=== PATIENT | male | born 1970 | race Caucasian/White ===

== ENCOUNTER 2020-10-21 08:14 | Emergency (ER) | payer BC ==
[~2020-10-21 08:14] MED LIST: ZOFRAN ODT 4 MG4 MG SL
[2020-10-21 09:04] LABS: HEMOGLOBIN 19.8 gm/dl (14.0-17.5); RED BLOOD COUNT 6.59 M/UL (4.20-5.50); WHITE BLOOD COUNT 17.1 K/UL (4.5-11.0)
[2020-10-21] MEDS ORDERED: ZOFRAN4 MG PO (12:08)
== END 2020-10-21 12:20 | disposition left against medical advice (07) ==
LOC: ER1 08:14
PROVIDERS: Physician Assistant
DX: R11.2 Nausea with vomiting, unspecified (principal); R19.7 Diarrhea, unspecified; E86.0 Dehydration; D72.829 Elevated white blood cell count, unspecified; E87.2 Acidosis; R10.84 Generalized abdominal pain; I10 Essential (primary) hypertension; Z53.20 Procedure and treatment not carried out because of patient's decision for unspecified reasons
CPT/HCPCS: 80053; 81001; 83605; 83690; 85025; 87040; 96372; 96374; 99284; J0500; J2405; J7030; Q9967

== ENCOUNTER 2021-04-15 09:21 | Emergency (ER) | payer BC ==
[~2021-04-15] VITALS: Ht 182.9 cm; Wt 95.3 kg
[~2021-04-15 09:21] MED LIST changes: +ZOFRAN4 MG PO
[2021-04-15] MEDS ORDERED: IBUPROFEN800 MG PO (11:25)
[2021-04-15] MEDS ORDERED: ZOFRAN ODT 4 MG4 MG PO (11:25)
[2021-04-15] MEDS ORDERED: IMODIUM CAP 2 MG2 MG PO (11:25)
== END 2021-04-15 12:56 | disposition home or self-care (01) ==
LOC: ER1 09:21
DX: U07.1 COVID-19 (principal); I10 Essential (primary) hypertension
CPT/HCPCS: 99283; J2405; J7030